=== PATIENT | female | born 1990 | race Asian ===

== ENCOUNTER 2017-07-23 00:40 | Inpatient (IN) | payer SELFPAY ==
[~2017-07-23] VITALS: Ht 162.6 cm; Wt 69.9 kg
[2017-07-23] MEDS ORDERED: CARBOPROST 250 MCG/ML AMP IM PRN (01:05)
[2017-07-23] MEDS ORDERED: OXYTOCIN 20 UNITS in LACTATED RINGERS 1,000 ML IV SCH (01:05)
[2017-07-23] MEDS ORDERED: NALBUPHINE HYDROCHLORIDE 10 MG/ML VIAL IVP PRN (01:05)
[2017-07-23] MEDS ORDERED: OXYTOCIN 10 UNITS/ML VIAL IM SCH (01:05)
[2017-07-23] MEDS ORDERED: METHYLERGONOVINE 0.2 MG/ML AMP IM PRN (01:05)
[2017-07-23] MEDS ORDERED: PROMETHAZINE 25 MG/ML VIAL IVP PRN (01:05)
[2017-07-23 01:39] LABS: BASOPHILS % (AUTO) 0.6 % (0.0-2.0); EOSINOPHILS # (AUTO) 0.1 K/uL (0-0.4); EOSINOPHILS % (AUTO) 1.9 % (0.0-4.0); HEMATOCRIT 33.6 % (36-48); HEMOGLOBIN 11.4 g/dL (12.0-16.0); LYMPHOCYTES # (AUTO) 1.5 K/uL (2.5-16.5); LYMPHOCYTES % (AUTO) 19.2 % (20.5-51.1); MEAN CORPUSCULAR HEMOGLOBIN 31 pg (27-31); MEAN CORPUSCULAR HGB CONC 34 g/dL (33-37); MEAN CORPUSCULAR VOLUME 90 fL (80-94); MONOCYTES # (AUTO) 0.5 K/uL (0.8-1.0); NEUTROPHILS # (AUTO) 5.6 K/uL (1.8-7.7); NEUTROPHILS % (AUTO) 72.3 % (42.2-75.2); PLATELET COUNT (AUTO) 214 K/uL (140-450); RED BLOOD CELL COUNT(AUTO) 3.73 MIL/uL (4.20-5.40); RED CELL DISTRIBUTION WIDTH 14.8 % (11.6-13.7); WHITE BLOOD COUNT (AUTO) 7.7 K/uL (4.8-10.8)
[2017-07-23] MEDS: LACTATED RINGERS 1,000 ML IV SCH ×4 (02:58→20:02)
[2017-07-23] MEDS ORDERED: MISOPROSTOL 25 MCG TAB ONE ×2 (03:15→08:04)
[2017-07-23] MEDS: MISOPROSTOL 25 MCG TAB VG PRN ×2 (03:24→07:55)
[2017-07-23 03:58] VITALS: BP 105/68
[2017-07-23] MEDS ORDERED: INFLUENZA VIRUS VACCINE QUAD 0.5 ML SYR IMVAC SCH (04:00)
[2017-07-23 04:11] LABS: APPEARANCE,URINE CLOUDY (CLEAR); BILIRUBIN,URINE NEGATIVE (NEGATIVE); BLOOD, URINE NEGATIVE (NEGATIVE); COLOR,URINE YELLOW (YELLOW); LEUKOCYTE ESTERASE ,URINE 1+ (NEGATIVE); NITRITE, URINE NEGATIVE (NEGATIVE); PH,URINE 6.5 (5.0-9.0); UGLUCOSE NEGATIVE (NEGATIVE)
[2017-07-23 04:23] LABS: RBC,URINE 0-5 (RARE) /HPF (0-5)
--- NOTE | 2017-07-23 06:42 | NUR ---
PATIENT HAS BEEN SCREENED AND CATEGORIZED LOW NUTRITION RISK. PATIENT WILL BE SEEN WITHIN 7 DAYS OF ADMISSION. 07/29/17 MIKE SHAW MS, RDN
[2017-07-23 06:58] LABS: RAPID PLASMA REAGIN NON-REACTIVE (Non Reactiv)
[2017-07-23] MEDS ORDERED: ROPIVACAINE 0.2%/NS PREMIX 250 ML EPI ONE ×2 (12:30→20:40)
[2017-07-23] MEDS ORDERED: FERR-212 PO (18:26)
[2017-07-23] MEDS ORDERED: PREN-380 PO (18:26)
[2017-07-23] MEDS ORDERED: CALC500T2 PO (18:26)
[2017-07-23] MEDS ORDERED: AMPICILLIN 2,000 MG in NACL 0.9% 100 ML IV SCH (18:30)
[2017-07-23] MEDS ORDERED: AMPICILLIN 2,000 MG VIAL ONE (18:46)
[2017-07-23] MEDS ORDERED: AMPICILLIN 1,000 MG in NACL 0.9% 50 ML IV SCH (22:30)
[2017-07-23] MEDS ORDERED: AMPICILLIN 1,000 MG VIAL ONE (22:59)
[2017-07-24] MEDS ORDERED: OXYTOCIN 10 UNITS/ML VIAL ONE (03:48)
[2017-07-24] MEDS ORDERED: IBUPROFEN 800 MG TAB PO PRN (03:55)
[2017-07-24] MEDS ORDERED: OXYTOCIN 10 UNITS/ML VIAL IM PRN (03:55)
[2017-07-24] MEDS ORDERED: BENZOCAINE/MENTHOL 20%-0.5% 60 GM CAN TP PRN (03:55)
[2017-07-24] MEDS ORDERED: oxyCODONE/APAP 5/325 MG 1 TAB TAB PO PRN (03:55)
[2017-07-24] MEDS ORDERED: TEMAZEPAM 15 MG CAP PO PRN (03:55)
[2017-07-24] MEDS ORDERED: MEASLES, MUMPS, AND RUBELLA 1 VIAL SQVAC PRN (03:55)
[2017-07-24] MEDS ORDERED: METHYLERGONOVINE 0.2 MG/ML AMP IM PRN (03:55)
[2017-07-24] MEDS ORDERED: MORPHINE SULFATE 4 MG/ML SYR IM ONE (04:00)
[2017-07-24] MEDS ORDERED: MORPHINE SULFATE 10 MG/ML SYR ONE (04:27)
[2017-07-24] MEDS: HYDROcodone/APAP 5/325 MG 1 TAB TAB PO PRN ×2 (06:53→13:16)
[2017-07-24] MEDS ORDERED: HYDROcodone/APAP 5/325 MG 1 TAB TAB ONE (07:00)
[2017-07-24] MEDS: BETHANECHOL 25 MG TAB PO SCH ×4 (10:34→20:40)
[2017-07-24] MEDS ORDERED: DOCUSATE SOD/SENNA 50/8.6 MG 1 TAB PO SCH (21:00)
[2017-07-25] MEDS ORDERED: INFLUENZA VIRUS VACCINE QUAD 0.5 ML SYR IMVAC SCH (04:45)
[2017-07-25 06:21] LABS: HEMATOCRIT 29.7 % (36-48); HEMOGLOBIN 9.9 g/dL (12.0-16.0)
[2017-07-25] MEDS ORDERED: IBUP-2218 PO (08:59)
== END 2017-07-25 15:45 | disposition home or self-care (01) | DRG 775 ==
LOC: MLD 00:40 → MFCC 07-24 08:10
PROVIDERS: ADMIT Obstetrics & Gynecology; ATTEND Obstetrics & Gynecology
PROC: 3E0234Z Introduction of Serum, Toxoid and Vaccine into Muscle, Percutaneous Approach (ICD-10-PCS; principal; 2017-07-23)
PROC: 10E0XZZ Delivery of Products of Conception, External Approach (ICD-10-PCS; 2017-07-23)
PROC: 3E0S3BZ Introduction of Anesthetic Agent into Epidural Space, Percutaneous Approach (ICD-10-PCS; 2017-07-23)
PROC: 00HU33Z Insertion of Infusion Device into Spinal Canal, Percutaneous Approach (ICD-10-PCS; 2017-07-23)
PROC: 0W8NXZZ Division of Female Perineum, External Approach (ICD-10-PCS; 2017-07-23)
DX: O80 Encounter for full-term uncomplicated delivery (principal); Z23 Encounter for immunization; Z37.0 Single live birth; Z3A.39 39 weeks gestation of pregnancy
CPT/HCPCS: 36415; 51702; 59200; 59409; 81001; 85018; 85025; 86592; 86886; 86900; 86901; 87086; 90658; C1758; J0290; J2270; J2590; J2795; J7120